=== PATIENT | male | born 1960 | race Caucasian/White ===

== ENCOUNTER 2017-04-11 08:26 | Emergency (ER) | payer OTHER ==
--- NOTE | 2017-04-11 08:59 | EDPHY ---
H & P Stated Complaint: ear pain, nausea, nasal congestion --feeling off balance x 8 days Time Seen by Provider: 04/11/17 08:58 - Personal History Current Tetanus/Diphtheria Vaccine: Unsure Current Tetanus Diphtheria and Acellular Pertussis (TDAP): Unsure - Medical/Surgical History Hx Asthma: No Hx Chronic Respiratory Disease: No Hx Diabetes: No Hx Cardiac Disease: No Hx Renal Disease: No Hx Cirrhosis: No Hx Alcoholism: No Hx HIV/AIDS: No Hx Splenectomy or Spleen Trauma: No Other PMH: HTN, GOUT, BORDERLINE HIGH CHOLESTEROL. Constitutional: Initial Vital Signs Temperature (C) 37.0 C 04/11/17 08:32 Heart Rate 60 04/11/17 08:32 Respiratory Rate 16 04/11/17 08:32 Blood Pressure 127/72 H 04/11/17 08:32 O2 Sat (%) 99 04/11/17 08:32 O2 Delivery Mode Room Air Allergies/Adverse Reactions: No Known Allergies Allergy (Verified 05/11/13 14:06) Home Medications: Medication Instructions Recorded Allopurinol [Allopurinol 300 MG 05/11/13 (RX)] Atorvastatin Calcium [Lipitor 10 05/11/13 mg (RX)] Losartan/Hctz 50/12.5 [Hyzaar 05/11/13 50/12.5MG (*)] AZITHROMYCIN [Z-PACK] 250 mg PO DAILY #1 packet 04/11/17 Neomy Sulf/Polymyx B Sulf/Hc 4 drops OT TID #1 otic.btl 04/11/17 [Cortisporin Otic Suspension] Ondansetron Odt [Zofran Odt 4 mg 4 mg PO Q4 PRN #10 tab 04/11/17 (RX)] Medical Decision Making ED Course/Re-evaluation: CHIEF COMPLAINT: Nasal congestion, ear pressure, dizziness HISTORY OF PRESENT ILLNESS: The patient is a 56 y/o male arriving with his complaining of nasal and lung congestion for the last week. Last night he developed significant ear pressure that woke him from sleep. He noticed some clear fluid draining from his right ear at this time. This morning he woke up and tried to walk to the bathroom, but felt extremely off balance and like he would fall. He had to call his for assistance. He continues to feel dizzy and he has since vomited once. He has a mild cough, but denies dyspnea or chest pain. No sore throat, fever, abdominal pain, diarrhea, recent trauma. REVIEW OF SYSTEMS: A 10 point review of systems was performed and is negative with the exception of the elements mentioned in the history of present illness. PHYSICAL EXAM: HR, BP, O2 Sat, RR. Temp noted General Appearance: Alert, well hydrated, appropriate, and non-toxic appearing. Head: Atraumatic without scalp tenderness or obvious injury. Maxillary sinus tenderness to percussion bilaterally. Eyes: Pupils equal, round, reactive to light and accommodation, EOMI, no trauma , no injection. Ears: Right TM perforation, left TM bulging with vesicles Nose: Atraumatic, no rhinorrhea, clear. Throat: There is no erythema or exudates, no lesions, normal tonsils, mucus membranes moist. Neck: Supple, nontender, no lymphadenopathy. Respiratory: No retractions, no distress, no wheezes, and no accessory muscle use. Lungs are clear to auscultation bilaterally. Cardiovascular: Regular rate and rhythm, no murmurs, rubs, or gallops. Good capillary refill all extremities. Gastrointestinal: Abdomen is soft, nontender, non-distended, no masses, no rebound, no guarding, no peritoneal signs. Musculoskeletal: Normal active ROM of all extremities, atraumatic. Neurological: Alert, appropriate, and interactive. The patient has non-focal cranial nerves, motor, sensory, and cerebellar exam. Skin: No rashes, good turgor, no nodules on palpation. Past medical history: Hypertension, gout, hyperlipidemia Past surgical history: Noncontributory Family history: Noncontributory Social history: at bedside. Lives in [place]. Employed DIFFERENTIAL DIAGNOSIS: The differential diagnosis for the patient's symptoms included but was not limited to mycoplasma otitis media, ruptured tympanic membrane, sinusitis, pneumonia, urinary tract infection, viral syndrome, meningitis, and sepsis. MEDICAL DECISION MAKING: This is a 56 y/o male who presents with a 7-day history of nasal congestion who developed acute ear pressure and right ear drainage last night and dizziness this morning. On exam, he has a perforated right TM and bulging left TM with maxillary sinus tenderness. Afebrile here. Presentation is consistent with sinusitis and otitis media with rupture. His vertiginous symptoms are likely related to this rupture and infection of inner ear. 60mg PO prednisone administered here. Patient will be discharged with scripts for otic Cortisporin , azithromycin, and Z-pack with standard OTC medication instructions for sinusitis and vertigo. Referral to ENT. Return precautions discussed. He is comfortable with this plan. - Data Points Medications Given: Discontinued Medications Prednisone (Prednisone) 60 mg PO EDNOW ONE Stop: 04/11/17 09:16 Last Admin: 04/11/17 09:19 Dose: 60 mg Departure - Departure Disposition: Home, Routine, Self-Care Clinical Impression: Perforated right tympanic membrane on examination, Dizziness Sinusitis Qualifiers: Sinusitis location: maxillary Chronicity: acute Recurrence: not specified as recurrent Qualified Code(s): J01.00 - Acute maxillary sinusitis, unspecified Bilateral otitis media Qualifiers: Otitis media type: suppurative Chronicity: acute Recurrence: not specified as recurrent Spontaneous tympanic membrane rupture: with spontaneous rupture Qualified Code(s): H66.013 - Acute suppurative otitis media with spontaneous rupture of ear drum, bilateral Condition: Good Instructions: Sinusitis (ED), Ruptured Eardrum (ED) Additional Instructions: 1. Use otic antibiotic drops as prescribed. Apply 4 drops in each ear 3 times daily. 2. Take azithromycin (antibiotic) as prescribed. Be sure to complete the entire prescription even if you feel better. 3. Use Meclizine (Antivert) as directed for dizziness. Available over-the- counter. 4. Take Zofran as prescribed if needed for nausea and vomiting. 5. Use Flonase nasal spray as directed on the packaging while symptomatic. Available [id number]. 6. Use Mucinex 1200mg twice daily while symptoms are present. Available over-the -counter. 7. Follow up with Dr. Cedillo, ENT, next week for reevaluation of ruptured ear drum and infection. 8. Return to the ED for severe headache, dramatic worsening of balance, vision changes, or other worsening of condition. Referrals: Shar Cedillo MD [Medical Doctor] - As per Instructions Prescriptions: AZITHROMYCIN [Z-PACK] 250 mg PO DAILY #1 packet Neomy Sulf/Polymyx B Sulf/Hc [Cortisporin Otic Suspension] 4 drops OT TID #1 otic.btl Ondansetron Odt [Zofran Odt 4 mg (RX)] 4 mg PO Q4 PRN #10 tab PRN Reason: Nausea/Vomiting, Use 1st Report Scribed for: Jaylen [email or web address] Report Scribed by: Cassandra Donovan Date of Report: 04/11/17 Time of Report: 09:04
[2017-04-11] MEDS ORDERED: predniSONE 20 MG TAB PO ONE (09:15)
[2017-04-11 09:45] VITALS: BP 133/80; PULSE 58; RESP 14; TEMP 97.9; O2SAT 95
== END 2017-04-11 09:45 | disposition home or self-care (01) ==
DX: R42 Dizziness and giddiness (principal); H66.012 Acute suppurative otitis media with spontaneous rupture of ear drum, left ear; J01.00 Acute maxillary sinusitis, unspecified; I10 Essential (primary) hypertension
CPT/HCPCS: J7512

== ENCOUNTER → 2018-04-22 | Outpatient (CLI) | payer OTHER | LOC: FIMAGING 19:00 | PROVIDERS: ATTEND Physical Medicine & Rehabilitation | DX: M48.02 Spinal stenosis, cervical region (principal); M50.322 Other cervical disc degeneration at C5-C6 level; M46.92 Unspecified inflammatory spondylopathy, cervical region ==